=== PATIENT | male | born 1950 | race African-American/Black ===

== ENCOUNTER 2017-09-15 20:58 | Emergency (ER) | payer SELFPAY ==
[~2017-09-15] VITALS: Ht 177.8 cm; Wt 75.0 kg
[~2017-09-15 20:58] MED LIST: CALCIUM CHLORIDE 1GM/10ML SYR IV ONE; DEXTROSE 50% WATER 50ML SYRINGE IV ONE; EPINEPHRINE 0.1MG/ML (1:10,000) 10ML SYR ONE; SODIUM BICARBONATE 7.5% 0.9 MEQ/ML 50ML SYR IV ONE
[2017-09-15] MEDS ORDERED: PANTOPRAZOLE 80 MG in SODIUM CHLORIDE 0.9% 100 ML IV STA (21:46)
[2017-09-15] MEDS ORDERED: MORPHINE SULFATE 4 MG/ML CPJ (NOT FOR IM USE) IV STA (21:46)
[2017-09-15] MEDS ORDERED: ONDANSETRON HCL 4MG/2ML VIAL IV STA (21:46)
[2017-09-15] MEDS ORDERED: PANTOPRAZOLE SODIUM 40 MG/VIAL IV STA (21:46)
[2017-09-15] MEDS ORDERED: OCTREOTIDE 1,000 MCG in SODIUM CHLORIDE 0.9% 100 ML IV STA (21:46)
[2017-09-15] MEDS ORDERED: OCTREOTIDE ACETATE 50 MCG/ML 1ML IV STA (21:46)
[2017-09-15] MEDS ORDERED: SODIUM CHLORIDE 0.9% 1000ML BAG (SEPSIS BOLUS) IV ONE (22:00)
[2017-09-15] MEDS ORDERED: PANTOPRAZOLE SODIUM 40 MG/VIAL IV ONE (22:08)
[2017-09-15 22:11] LABS: BASOPHILS % 0.8 % (0.0-2.0); HEMATOCRIT. 32.7 % (42.0-52.0); HEMOGLOBIN. 10.8 g/dL (14.0-18.0); LYMPHOCYTES % 35.6 % (20.0-50.0); MEAN CORPUSCULAR HEMOGLOBIN 31.7 pg (28.0-32.0); MEAN CORPUSCULAR VOLUME 96.1 fL (80.0-94.0); MEAN PLATELET VOLUME 9.4 fl (7.4-10.4); MONOCYTES % 13.9 % (2.0-8.0); NEUTROPHILS % 46.7 % (40.0-76.0); PLATELET 132 x1000/uL (130-400); RED CELL DISTRIBUTION WIDTH 15.5 % (11.6-14.6)
[2017-09-15 22:15] LABS: CHLORIDE 111 mEq/L (98-107)
[2017-09-15 22:19] LABS: INR 1.4; PROTHROMBIN TIME 14.7 sec (9.4-11.6)
[2017-09-15] MEDS ORDERED: PIPERACILLIN/TAZ 3.375G PREMIX 50 ML IV ONE (23:30)
[2017-09-15] MEDS ORDERED: VANCOMYCIN 1 G PREMIX 200 ML IV ONE (23:30)
[2017-09-15] MEDS ORDERED: METRONIDAZOLE 500 MG PREMIX 100 ML IV ONE (23:30)
[2017-09-15] MEDS ORDERED: ONDANSETRON HCL 4MG/2ML VIAL IV ONE (23:45)
[2017-09-15] MEDS ORDERED: LORAZEPAM 2MG/ML CPJ IV ONE (23:45)
[2017-09-15] MEDS ORDERED: LORAZEPAM 2MG/ML CPJ ONE (23:52)
[2017-09-16] MEDS ORDERED: PROPOFOL 10MG/ML 100ML 100 ML IV ONE (00:34)
[2017-09-16] MEDS ORDERED: PROPOFOL 10MG/ML 100ML 100 ML IV SCH (01:00)
[2017-09-16 01:41] VITALS: BP 75/52
[2017-09-16] MEDS ORDERED: NOREPINEPHRINE 4 MG in DEXT 5% WATER 246 ML IV ONE (02:00)
[2017-09-16] MEDS ORDERED: NOREPINEPHRINE 4 MG in DEXT 5% WATER 246 ML IV PRN (02:15)
[2017-09-16 02:21] LABS: BASOPHILS % 0.3 % (0.0-2.0); EOSINOPHILS % 0.9 % (0.0-5.0); HEMATOCRIT. 23.1 % (42.0-52.0); LYMPHOCYTES % 16.5 % (20.0-50.0); MEAN CORPUSCULAR HEMOGLOBIN 31.5 pg (28.0-32.0); MEAN CORPUSCULAR VOLUME 103.9 fL (80.0-94.0); MEAN PLATELET VOLUME 9.2 fl (7.4-10.4); MONOCYTES % 4.1 % (2.0-8.0); NEUTROPHILS % 78.2 % (40.0-76.0); PLATELET 86 x1000/uL (130-400); RED BLOOD CELL COUNT 2.23 mill/uL (4.7-6.1); RED CELL DISTRIBUTION WIDTH 16.5 % (11.6-14.6)
[2017-09-16] MEDS ORDERED: EPINEPHRINE 0.1MG/ML (1:10,000) 10ML SYR ONE (02:31)
== END 2017-09-16 04:45 | disposition expired ==
LOC: ER 21:32 → EDBEDREQ 09-16 01:12 → EDBEDREQSVC 09-16 01:14 → ENRESERV 09-16 02:31 → CANBEDREQ 09-16 03:32 → ER 09-16 04:45
DX: K92.2 Gastrointestinal hemorrhage, unspecified (principal); R65.21 Severe sepsis with septic shock; A41.9 Sepsis, unspecified organism; J18.9 Pneumonia, unspecified organism; R57.8 Other shock; F10.10 Alcohol abuse, uncomplicated; Z86.73 Personal history of transient ischemic attack (TIA), and cerebral infarction without residual deficits
CPT/HCPCS: 31500; 36415; 36430; 36556; 51702; 71045; 74176; 80053; 82962; 83605; 83690; 84484; 85025; 85610; 85730; 86850; 86900; 86901; 86920; 87040; 92950; 93005; 96365; 96366; 96367; 96368; 96375; 96376; 99291; C9113; J2270; J2354; J2405; J2543; J2704; J3490; J7030; P9016; Z7610; J2060; J7050; J7060; A4315